=== PATIENT | male | born 1950 | race American Indian/Alaskan Native ===

== ENCOUNTER 2016-09-14 00:33 | Emergency (ER) | payer SELFPAY ==
[2016-09-14] MEDS ORDERED: XYLOCAINE 2%/EPI 1:100,000 INFILTRATI ONE (05:44)
[2016-09-14 06:58] VITALS: BP 131/84
--- NOTE | 2016-09-14 07:01 | Emergency Department Report ---
- General Chief complaint: Skin/Abscess/Foreign Body Stated complaint: BUMP ON BACK Time Seen by Provider: 09/14/16 05:38 Source: patient Mode of arrival: Ambulatory Limitations: No Limitations, Language Barrier - History of Present Illness Initial comments: Patient comes into the ER today with complaints of a swollen, tender area to the middle of his back. Patient states that he has had this since approximately 13 years of age and it has never bothered him until the past 2 weeks. In the past couple weeks, the area has become larger, more painful, and has been draining some purulent discharge. Patient and family have been putting warm compresses to area without any relief. Patient denies any fever, chills, body aches. MD complaint: abscess/boil - Related Data Previous Rx's Medication Instructions Recorded Last Taken Type ALBUTEROL Inhaler [ProAir HFA 2 puff IH QID PRN #1 inhalation 11/14/15 Unknown Rx Inhaler] Cephalexin [Keflex] 500 mg PO TID #30 capsule 09/14/16 Unknown Rx Sulfamethoxazole/Trimethoprim 1 each PO BID #20 tablet 09/14/16 Unknown Rx [Bactrim DS TAB] traMADol [Ultram 50 MG tab] 50 mg PO Q4HR PRN #18 tablet 09/14/16 Unknown Rx Allergies Allergy/AdvReac Type Severity Reaction Status Date / Time No Known Allergies Allergy Unverified 11/13/15 12:09 Abscess Boil HPI - HPI Chief Complaint: Skin/Abscess/Foreign Body Stated Complaint: BUMP ON BACK Time Seen by Provider: 09/14/16 05:38 Home Medications: Previous Rx's Medication Instructions Recorded Last Taken Type ALBUTEROL Inhaler [ProAir HFA 2 puff IH QID PRN #1 inhalation 11/14/15 Unknown Rx Inhaler] Cephalexin [Keflex] 500 mg PO TID #30 capsule 09/14/16 Unknown Rx Sulfamethoxazole/Trimethoprim 1 each PO BID #20 tablet 09/14/16 Unknown Rx [Bactrim DS TAB] traMADol [Ultram 50 MG tab] 50 mg PO Q4HR PRN #18 tablet 09/14/16 Unknown Rx Allergies/Adverse Reactions: Allergies Allergy/AdvReac Type Severity Reaction Status Date / Time No Known Allergies Allergy Unverified 11/13/15 12:09 ED Review of Systems ROS: Stated complaint: BUMP ON BACK Other details as noted in HPI Constitutional: denies: chills, fever Eyes: denies: eye pain, eye discharge, vision change ENT: denies: ear pain, throat pain Respiratory: denies: cough, shortness of breath, wheezing Cardiovascular: denies: chest pain, palpitations Endocrine: no symptoms reported Gastrointestinal: denies: abdominal pain, nausea, diarrhea Genitourinary: denies: urgency, dysuria Musculoskeletal: denies: back pain, joint swelling, arthralgia Skin: lesions. denies: rash Neurological: denies: headache, weakness, paresthesias Psychiatric: denies: anxiety, depression Hematological/Lymphatic: denies: easy bleeding, easy bruising ED Past Medical Hx - Past Medical History Previous Medical History?: Yes Hx Hypertension: Yes Hx HIV: No - Surgical History Past Surgical History?: No - Social History Smoking Status: Never Smoker Substance Use Type: None - Medications Home Medications: Home Medications Medication Instructions Recorded Confirmed Last Taken Type ALBUTEROL Inhaler [ProAir HFA 2 puff IH QID PRN #1 inhalation 11/14/15 Unknown Rx Inhaler] Cephalexin [Keflex] 500 mg PO TID #30 capsule 09/14/16 Unknown Rx Sulfamethoxazole/Trimethoprim 1 each PO BID #20 tablet 09/14/16 Unknown Rx [Bactrim DS TAB] traMADol [Ultram 50 MG tab] 50 mg PO Q4HR PRN #18 tablet 09/14/16 Unknown Rx ED Physical Exam - General Limitations: No Limitations, Language Barrier General appearance: alert, in no apparent distress - Head Head exam: Present: atraumatic, normocephalic - Eye Eye exam: Present: normal appearance - ENT ENT exam: Present: mucous membranes moist - Neck Neck exam: Present: normal inspection - Respiratory Respiratory exam: Present: normal lung sounds bilaterally. Absent: respiratory distress - Cardiovascular Cardiovascular Exam: Present: regular rate, normal rhythm. Absent: systolic murmur, diastolic murmur, rubs, gallop - GI/Abdominal GI/Abdominal exam: Present: soft, normal bowel sounds - Rectal Rectal exam: Present: deferred - Extremities Exam Extremities exam: Present: normal inspection - Back Exam Back exam: Present: normal inspection, tenderness (midline thoracic redness, swelling, tenderness) - Neurological Exam Neurological exam: Present: alert, oriented X3 - Psychiatric Psychiatric exam: Present: normal affect, normal mood - Skin Skin exam: Present: warm, dry, intact, normal color, erythema, other (23 centimeter red, swollen, tender lesion midline over her thoracic spine consistent with abscess/cyst. No active drainage upon initial examination.). Absent: rash ED Course Vital Signs 09/14/16 00:44 Temperature 98.3 F Pulse Rate 93 H Blood Pressure 148/90 O2 Sat by Pulse 98 Oximetry - I & D Posterior Back Type of Procedure: Complex Site: midline thoracic back overlying spine Blade Size: 11 I & D Procedure: betadine prep, sterile dressing applied Progress: Patient prepped in sterile fashion with alcohol and Betadine. Lesion infiltrated with lidocaine with epinephrine 2% circumferentially. Injected approximately 3 mL of lidocaine. Centrally over lesion, linear 1 cm incision made parallel with spine. Expressed a moderate amount of purulent/bloody drainage from wound. Wound explored with forceps. Removed cystic sebaceous sac from incision. No active bleeding or discharge after procedure. Sterile dressing applied. Wound was not packed with gauze. Patient tolerated procedure very well without complications. I instructed patient and family on proper care of wound. I will start patient on some antibiotics appropriately as well as prescribe some mild pain medications for any symptomatic relief that is needed. ED Medical Decision Making - Medical Decision Making Patient tolerated incision and drainage in the ER without any complications. Patient instructed on proper care. I will start patient on antibiotics appropriately as well as prescribed some pain medications as needed. Patient's family are in agreement with treatment plan. Patient is nontoxic and hemodynamically stable. Patient is stable for discharge Critical care attestation.: If time is entered above; I have spent that time in minutes in the direct care of this critically ill patient, excluding procedure time. ED Disposition Clinical Impression: Infected sebaceous cyst Disposition: TO HOME OR SELFCARE Is pt being admited?: No Does the pt Need Aspirin: No Condition: Good Instructions: Abscess Incision and Drainage (ED) Prescriptions: Cephalexin [Keflex] 500 mg PO TID #30 capsule Sulfamethoxazole/Trimethoprim [Bactrim DS TAB] 1 each PO BID #20 tablet traMADol [Ultram 50 MG tab] 50 mg PO Q4HR PRN #18 tablet PRN Reason: Pain Referrals: PRIMARY CARE, [Primary Care Provider] - 3-5 Days Time of Disposition: 07:04 Print Language: CYPRIOT
== END 2016-09-14 07:10 | disposition home or self-care (01) ==
LOC: ED 00:33
DX: L72.3 Sebaceous cyst (principal); I10 Essential (primary) hypertension